=== PATIENT | female | born 1975 | race Caucasian/White ===

== ENCOUNTER → 2017-07-08 | Outpatient (CLI) | payer BC | LOC: FIMAGING 12:36 | PROVIDERS: ATTEND Physician Assistant | DX: Z12.31 Encounter for screening mammogram for malignant neoplasm of breast (principal); E04.2 Nontoxic multinodular goiter; R59.0 Localized enlarged lymph nodes | CPT/HCPCS: G0202 ==

== ENCOUNTER → 2017-07-12 | Outpatient (CLI) | payer BC ==
[~2017-07-12] MED LIST: LIDOCAINE 1% 300 MG/30 ML SDV ONE
== END ==
LOC: FIMAGING 12:31
PROVIDERS: ATTEND Physician Assistant
PROC: 0G9K3ZX Drainage of Thyroid Gland, Percutaneous Approach, Diagnostic (ICD-10-PCS; principal; 2017-07-12)
DX: C73 Malignant neoplasm of thyroid gland (principal)

== ENCOUNTER → 2017-07-20 | Outpatient (CLI) | payer BC | LOC: FIMAGING 14:12 | PROVIDERS: ATTEND Physician Assistant | DX: R92.8 Other abnormal and inconclusive findings on diagnostic imaging of breast (principal) ==

== ENCOUNTER 2017-09-08 06:35 | Observation (INO) | payer BC ==
[2017-09-08] MEDS ORDERED: LR 1,000 ML IV ONE (07:04)
[2017-09-08] MEDS ORDERED: MIDAZOLAM 2 MG/2 ML VIAL IVP ONE (07:41)
--- NOTE | 2017-09-08 07:41 | PDANEPAE ---
ANE History of Present Illness thyroidectomy, B neck dissection ANE Past Medical History - Cardiovascular History Hx Hypertension: No Hx Arrhythmias: No Hx Chest Pain: No Hx Coronary Artery / Peripheral Vascular Disease: No Hx CHF / Valvular Disease: No Hx Palpitations: No - Pulmonary History Hx COPD: No Hx Asthma/Reactive Airway Disease: Yes Hx Recent Upper Respiratory Infection: No Hx Oxygen in Use at Home: No Hx Sleep Apnea: No Sleep Apnea Screening Result - Last Documented: Negative Pulmonary History Comment: EXERCISE INDUCED ASTHMA. HAS INHALER USES APPROX TWICE A WEEK - Neurologic History Hx Cerebrovascular Accident: No Hx Seizures: No Hx Dementia: No - Endocrine History Hx Diabetes: No - Renal History Hx Renal Disorders: No - Liver History Hx Hepatic Disorders: No - Neurological & Psychiatric Hx Hx Neurological and Psychiatric Disorders: No - Cancer History Hx Cancer: Yes Cancer History Comment: NEW DX OF THYROID - Congenital Disorder History Hx Congenital Disorders: No - GI History Hx Gastrointestinal Disorders: No - Other Health History Other Health History: NEG - Chronic Pain History Chronic Pain: No - Surgical History Prior Surgeries: RT BREAST BX. RT SHLDR REPAIR ANE Review of Systems Review of systems is: negative Review of Systems: - Exercise capacity Exercise capacity: >=4 METS METS (RN): 6 METS ANE Patient History - Allergies Allergies/Adverse Reactions: No Known Allergies Allergy (Unverified 08/11/17 14:18) - Home Medications Home medications: home medication list seen and reviewed Home Medications: Albuterol [Proventil Inhaler HFA (*)] 1 - 2 puffs IH DAILY PRN 08/11/17 [Last Taken 09/08/17 06:00] Cholecalciferol Vit D3 [Vitamin D3 (*)] 1,000 units PO DAILY 08/11/17 [Last Taken 09/01/17] Herbals/Supplements -Info Only 1 ea PO DAILY 08/11/17 [Last Taken 09/01/17] Multivitamins [Multivitamin (*)] 1 each PO DAILY 08/11/17 [Last Taken 09/01/17] Holiday-3 Fatty Acids [Fish Oil 1000 mg (*)] 1,000 mg PO DAILY 08/11/17 [Last Taken 09/01/17] SUMAtriptan [Imitrex 50 MG (*)] 100 mg PO DAILY PRN 08/11/17 [Last Taken ] - NPO status NPO Since - Liquids (Date): 09/08/17 NPO Since - Liquids (Time): 06:00 NPO Since - Solids (Date): 09/07/17 NPO Since - Solids (Time): 21:00 - Anes Hx Anes Hx: post operative nausea - Smoking Hx Smoking Status: Never smoked - Family Anes Hx Family Anes Hx: none ANE Labs/Vital Signs - Vital Signs Blood Pressure: 158/108 Heart Rate: 81 Respiratory Rate: 16 O2 Sat (%): 99 Height: 157.48 cm Weight: 63.503 kg ANE Physical Exam - Airway Neck exam: FROM Mallampati Score: Class 1 Mouth exam: normal dental/mouth exam - Pulmonary Pulmonary: no respiratory distress - Cardiovascular Cardiovascular: regular rate and rhythym - ASA Status ASA Status: II ANE Anesthesia Plan Anesthesia Plan: general endotracheal anesthesia
[2017-09-08] MEDS ORDERED: DEXAMETHASONE 10 MG/ML VIAL IVP ONE ×2 (07:45→07:55)
[2017-09-08] MEDS ORDERED: ceFAZolin 2 GM/SWFI 2 GM/20 ML SYR IVP ONE (07:45)
[2017-09-08] MEDS ORDERED: LIDO/EPI 2%** Not for Epidural 20 ML MDV ONE (07:46)
--- NOTE | 2017-09-08 07:46 | PDHPUP ---
History & Physical Update H&P update statement: This history and physical update is based on an assessment of the patient which was completed after admission or registration (within 24 hours), but prior to the surgery/procedure.
[2017-09-08] MEDS ORDERED: BACITRACIN ZINC 14.2 GM OINTTUBE TP ONE (07:47)
[2017-09-08] MEDS ORDERED: LIDOCAINE 1% 300 MG/30 ML SDV ONE (07:47)
[2017-09-08] MEDS ORDERED: LIDOCAINE 2% 100 MG/5 ML SYR ONE (08:00)
[2017-09-08] MEDS ORDERED: ONDANSETRON 4 MG/2 ML VIAL ONE (08:00)
[2017-09-08] MEDS ORDERED: fentaNYL 250 MCG/5 ML INJ ONE (08:00)
[2017-09-08] MEDS ORDERED: DEXAMETHASONE 4 MG/ML VIAL ONE (08:00)
[2017-09-08] MEDS ORDERED: PROPOFOL 200 MG/20 ML VIAL ONE ×3 (08:00→09:41)
[2017-09-08] MEDS ORDERED: ROCURONIUM 50 MG/5 ML VIAL ONE (08:00)
[2017-09-08] MEDS ORDERED: HYDROCODONE/APAP 5/325 TAB PO PRN (09:25)
[2017-09-08] MEDS ORDERED: PROMETHAZINE HCL 25 MG/ML INJ IVP PRN (09:25)
[2017-09-08] MEDS ORDERED: MEPERIDINE 25 MG/ML SYR IVP PRN (09:25)
[2017-09-08] MEDS ORDERED: OXYCODONE/APAP 5/325 TAB PO PRN ×2 (09:25→13:31)
[2017-09-08] MEDS ORDERED: ACETAMINOPHEN 500 MG TAB PO PRN (09:25)
[2017-09-08] MEDS ORDERED: LABETALOL HCL 5 MG/ML 20 ML MDV IVP PRN (09:25)
[2017-09-08] MEDS ORDERED: HYDROmorphONE/DILAUDID 1 MG/ML INJ IVP PRN (09:25)
[2017-09-08] MEDS ORDERED: ONDANSETRON 4 MG/2 ML VIAL IVP PRN ×2 (09:25→13:31)
[2017-09-08] MEDS ORDERED: ALBUTEROL 3 ML DEYVIAL IH PRN (09:25)
[2017-09-08] MEDS ORDERED: DEXAMETHASONE 4 MG/ML VIAL IVP PRN (09:25)
[2017-09-08] MEDS ORDERED: fentaNYL 100 MCG/2 ML INJ IVP PRN (09:25)
[2017-09-08] MEDS ORDERED: NALOXONE HCL 0.4 MG/ML INJ IVP PRN (09:25)
--- NOTE | 2017-09-08 09:26 | POSTANESTH ---
Post Anesthetic Evaluation Cardiovascular Status: Normal, Stable, Similar to Pre-Op Cond Respiratory Status: Normal, Stable, Similar to Pre-op Cond. Level of Consciousness/Mental Status: Can Participate in Eval, Mildly Sleepy, Arousable Pain Control: Adequate, Prn Tx Ordered Nausea/Vomiting Control: Adequate, Prn Tx Ordered Complications Possibly Related to Anesthesia: None Noted
[2017-09-08] MEDS ORDERED: HYDROmorphONE/DILAUDID 2 MG/ML INJ ONE (10:37)
[2017-09-08] MEDS ORDERED: PROPOFOL/EMULSION 500 MG/50 ML BOTTLE IV ONE (10:55)
[2017-09-08] MEDS ORDERED: HYDROCOD/APAP 7.5/325 IN 15ML UDCUP PO PRN (13:31)
[2017-09-08] MEDS ORDERED: ALBUTEROL 60 PUFFS/8 GM MDI IH PRN (13:36)
[2017-09-08] MEDS ORDERED: SUMATRIPTAN 100 MG PO PRN (13:36)
[2017-09-08] MEDS ORDERED: SUMAtriptan 50 MG TAB PO PRN (14:05)
[2017-09-08] MEDS: D5W 1/2 NS W/ 20 KCl/L 1,000 ML IV SCH (14:46)
--- NOTE | 2017-09-08 18:30 | POSTOPPROG ---
Post Op Note Date of Operation: 09/08/17 Surgeon: Kevon Hart Telecommunicator Supervisor: Dipak Booth Anesthesiologist: Sandip Azar Anesthesia: GET(General Endotracheal) Pre-op Diagnosis: Papillary thyroid cancer Post-op Diagnosis: Papillary thyroid cancer Indication: Metastatic cancer Procedure: Total thyroidectomy, bilateral central neck dissection, bilat lateral ND Findings: firm thyoid mass centered in isthmus, mult grossly pos nodes Inf/Abcess present in the surg proc area at time of surgery?: No Depth: Organ Space EBL: 50-100 Complications: none Drains: Dakota Herrera (bilateral 10 FR drains)
[2017-09-08] MEDS ORDERED: KETOROLAC 15 MG/1 ML SDV IVP ONE (18:31)
--- NOTE | 2017-09-08 18:35 | SOAPPROG ---
SOAP Progress Note Assessment/Plan: Assessment: Pt doing well, not tolerating oral narcotics. Will try oral tylenol and a single dose of IV toradol. Plan: Pt doing well. Will obs overnight and see how she is doing in the morning. 09/08/17 18:32 Subjective: Hurts a bit to swallow, pain 4/10. Voice is "normal" No SOB. Objective: Vital Signs Temp Pulse Resp BP Pulse Ox 36.9 C 82 16 154/96 H 92 09/08/17 17:28 09/08/17 17:28 09/08/17 17:28 09/08/17 17:28 09/08/17 17:28 09/07/17 09/08/17 09/09/17 05:59 05:59 05:59 Intake Total 195 Output Total 430 Balance -235 Pt sitting up in bed. Neck is flat. ICD10 Worksheet Patient Problems: Problems Problem Status Onset Papillary thyroid carcinoma Acute - ICD10 Problem Qualifiers (1) Papillary thyroid carcinoma
[2017-09-09] MEDS: D5W 1/2 NS W/ 20 KCl/L 1,000 ML IV SCH (04:12)
[2017-09-09] MEDS: ACETAMINOPHEN 325 MG TAB PO PRN ×2 (04:12→10:24)
--- NOTE | 2017-09-09 05:12 | GOP ---
[f rep st] OPERATIVE REPORT DATE OF OPERATION: 09/08/2017 SURGEON: Kevon Hart MD PUMPER BREWERY: Jonas Booth ANESTHESIA: General. 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 PROCEDURE PERFORMED: 1. Total thyroidectomy. 2. Bilateral central compartment neck dissection. 3. Bilateral lateral neck dissections. FINDINGS: Both recurrent laryngeal nerves were identified and preserved. Both of the parathyroid glands in the left side of the neck were preserved. On the right side, I preserved the superior parathyroid gland. I did not see the inferior gland at the time of surgery. The patient had diffuse grossly positive lymph nodes at levels 3 and 4 and 6 bilaterally. There were 2 areas of metastatic spread embedded in the posterior aspect of the sternocleidomastoid muscle at its insertion into the clavicle on the right side. There was a large metastatic lesion in the left level 3, just inferior to the accessory nerve. The tumor of the thyroid gland itself was centered at the isthmus. It appeared to extend up along the pyramidal lobe. The dissection was carried all the way up to the hyoid bone. SPECIMENS: 1. Thyroid gland. 2. Right lateral neck dissection lymph nodes. 3. Right central compartment paratracheal nodes and anterior tracheal lymphatic tissue. 4. Left lateral neck lymph nodes. 1. Left paratracheal, central compartment lymph nodes. 5. ESTIMATED BLOOD LOSS: 100 mL. INDICATIONS: The patient is a 42-year-old woman with biopsy-proven papillary thyroid carcinoma. Preoperative imaging has shown evidence of spread to the lateral necks as well as central compartment. She presents for surgical intervention. DESCRIPTION OF PROCEDURE: The patient was taken to the OR and positively identified, placed on monitors, and general endotracheal anesthesia was induced. The incision was marked along the anterior neck and infiltrated with 4 cc of 1% lidocaine with 1:200,[address] Booth was present and actively involved in the entire sequence of procedures, his help was critical to the successful and safe completion of these operations. The patient was then prepped and draped in a normal sterile fashion, and the incision was made sharply. Dissection was then carried down to the platysma using Bovie electrocautery. Superior and inferior subplatysmal flaps were then raised and secured with 2-0 silk stitches. The tumor was palpable and grossly extended into the strap muscles at the midline. Therefore, a portion of the strap muscles was cut around this area of gross invasion and kept on the specimen. The strap muscles were then elevated off the thyroid gland bilaterally. Beginning on the right side, the dissection was carried along the thyroid capsule. The superior vascular pedicle was isolated, clamped, cut, and ligated with 2-0 silk suture. Dissection was then carried meticulously along the thyroid capsule, rotating medially. The superior parathyroid gland was identified and preserved. I did not identify the inferior parathyroid gland. The recurrent laryngeal nerve was then identified, and Joyner ligament divided. The thyroid gland was rotated medially. There was no gross invasion into the trachea. It was rotated off the trachea. I then dissected up the pyramidal lobe, which extended all the way up to the hyoid bone, where I then divided it. The isthmus containing the round massive tumor was then elevated off the trachea itself. Attention was now turned to the left side of the thyroid gland. The strap muscles were elevated off the superior vascular pedicle, which was clamped, cut , and ligated with 2-0 silk, as with the right side. It was then rotated medially. The recurrent laryngeal nerve and, in this case, both of the parathyroid glands were identified and preserved. Joyner ligament was divided and the thyroid gland was rotated medially. There were grossly positive lymph nodes attached to the inferior aspect of the left thyroid lobe. These were removed along with the thyroid gland itself. It was placed in formalin and sent for pathologic evaluation. Attention was now turned to the right lateral neck dissection. The fascia along the anterior border of the sternocleidomastoid muscle was divided. The SCM was then elevated. The underlying lymphatic tissue of levels 3 and 4 was then swept medially. Dissection was then carried down to the prevertebral fascia and the cervical rootlets, which were preserved. The lymphatic tissue was then rotated medially, dissecting it off the carotid artery and the internal jugular vein. Multiple grossly-positive lymph nodes were located within this tissue. Dissection was then carried down to the level of the clavicle. The lymphatic tissue was then removed. On palpation, I felt separate 2 small masses which were adherent to the undersurface of the sternocleidomastoid muscle, right at the point where the muscle attached to the medial aspect of the clavicle. The fascia was gently divided. These 2 grossly- positive nodes were then dissected away and added to the pathology specimen which contained the right lateral neck dissection tissue. Attention was turned to the right central compartment dissection. What I initially did was dissect down along the recurrent laryngeal nerve to decrease risk of injury. The surrounding paratracheal soft tissue was dissected inferiorly to the level of the transverse cervical vessels, and dissection was then carried along the midline toward the thymus, where there was a single grossly-positive lymph node about 1 cm in diameter sitting on the anterior aspect of the trachea, and this was removed. At this point, attention was turned to the left side of the neck. The lateral neck dissection was then performed on this side. Interestingly, there was a significant amount of inflammatory tissue and scarring around the metastatic mass, which was the largest that we located in the neck, involving levels 3 and 4. Its superior extent was up to the point that it was just inferior to the accessory nerve, where it entered the sternocleidomastoid muscle. Meticulous dissection was carried out. It took approximately 45 minutes to do this portion of the operation, using the [place] nerve stimulator to identify the accessory nerve and prevent inadvertent injury to it. The mass was dissected down inferiorly, elevating it off the internal jugular vein and carotid artery, and off the undersurface of the sternocleidomastoid muscle, and sweeping it from the neck and sending it along with its surrounding lymphatic tissue as the left lateral neck lymph nodes. Attention was now turned to the left central compartment dissection. I again identified the recurrent laryngeal nerve and dissected inferiorly along the nerve to keep it under direct visualization. Both the superior and inferior parathyroid glands were elevated laterally, preserving their vascular pedicle. At this point, the left paratracheal lymph nodes were dissected inferiorly down to the level of the transverse cervical vessels, although that dissection was not quite as aggressive on the left side due to the potential risk of a chyle leak. At this point, the inferior aspects of the lymph nodes were divided from the underlying tissue, with first using hemoclips and then sharply dividing above these. The tissue was sent separately for pathologic evaluation. At this point, the wound was irrigated with sterile saline solution. The neck was palpated bilaterally. I could not feel any further grossly-positive lymph nodes. Hemostasis was achieved slowly working our way around the neck, looking for oozing vessels, using bipolar cautery, hemoclips, or tying them off as needed. At this point, two 10-Palestinian drains were placed within the neck, 1 exiting out the side of the neck. They were secured with a drain stitch. The wound was then closed using 3-0 Vicryl to reapproximate the strap muscles, 4 -0 Monocryl for the platysma and subcutaneous tissues, and a 5-0 running Prolene through the skin, followed by bacitracin and Steri-Strips and a pressure dressing. The procedures took approximately 4 hours and were more complicated than the usual thyroid cancer operation. At this point, the patient was extubated and taken to the postop care unit in good condition, having tolerated the procedure well. COMPLICATIONS: None. DRAINS: Two 10-Palestinian drains were placed, a round drain more superficially, and a 10-Palestinian flat PAULINE drain deeper within the neck. /[id number]/MODL MTDD
[2017-09-09 07:19] VITALS: RESP 18; TEMP 99; O2SAT 95
[2017-09-09] MEDS ORDERED: CEPHALEXIN 500 MG CAP PO ONE (09:18)
--- NOTE | 2017-09-09 09:32 | PDDCSUM ---
Discharge Summary Discharge Summary: S: 42 year old female POD #1 s/p total thyroidectomy, bilateral central compartment neck dissection, bilateral neck dissection for papillary thyroid carcinoma with metastasis to bilateral cervical lymph nodes by Dr. Hart and Dr. Booth. She was admitted for observation 09/08/17. She is doing well. Using tylenol for pain. Eating and drinking well. Denies and SOB, changes in voice, difficulty swallowing. O: Larger PAULINE drain 150ml and smaller at 20 mL. Ionized calcium at 5:20AM at 1.14. Vital signs stable. Patient is in bed, alert and oriented. She is speaking well, breathing without issues. Incision clean, dry, intact. A/P: 42 year old female POD #1 s/p total thyroidectomy with neck dissection doing well post-operatively. Smaller PAULINE drain removed and dressing replaced. Patient is doing well and okay for discharge. She can resume regular diet. Reviewed case with Dr. Hart and david for discharge. Will remove larger drain tomorrow. Recommend kelfex 500 mg TID until larger drain removed. Tylenol for pain as she cannot tolerate narcotics. Post op visit scheduled for next week.
[2017-09-09 11:08] VITALS: BP 134/96; PULSE 77
--- NOTE | 2017-09-09 17:41 | ASDISCHSUM ---
Discharge Information Plan Status:Home with No Needs Medically Cleared to Leave: Discharge Date:09/09/2017 11:41 AM CM D/C Disposition:Home, Routine, Self-Care ADT D/C Disposition:Home, Routine, Self-Care Projected Discharge Date:09/09/2017 11:41 AM Transportation at D/C: Discharge Delay Reason: Follow-Up Date:09/09/2017 11:41 AM Discharge Slot: Final Diagnosis: Placement Information Patient Contact Information Contact Name:PRASHANTH Relationship:Mother Address: City: [facility] Phone: [facility] REO Code: Email: Financial Information Financial Class:HMO and PPO Plans Primary Plan Desc: OUT OF STATE PPO Primary Plan Number:[id number] Secondary Plan Desc: Secondary Plan Number: Assessment Information Intervention Information
== END 2017-09-09 11:41 | disposition home or self-care (01) ==
LOC: F3E 06:35
PROVIDERS: ADMIT Otolaryngology; ATTEND Otolaryngology
PROC: 0GTK0ZZ Resection of Thyroid Gland, Open Approach (ICD-10-PCS; principal; 2017-09-08 08:00)
PROC: 07T20ZZ Resection of Left Neck Lymphatic, Open Approach (ICD-10-PCS; principal; 2017-09-08 08:00)
PROC: 07T10ZZ Resection of Right Neck Lymphatic, Open Approach (ICD-10-PCS; principal; 2017-09-08 08:00)
DX: C73 Malignant neoplasm of thyroid gland (principal); C77.0 Secondary and unspecified malignant neoplasm of lymph nodes of head, face and neck
CPT/HCPCS: 60252; G0378; J0171; J0690; J1100; J1170; J1885; J2001; J2250; J2405; J2704; J3010

== ENCOUNTER → 2017-10-26 | Outpatient (CLI) | payer BC | LOC: FIMAGING 12:46 | PROVIDERS: ATTEND Internal Medicine Endocrinology, Diabetes & Metabolism | DX: C73 Malignant neoplasm of thyroid gland (principal) | CPT/HCPCS: 78018; 79005; A9517 ==

== ENCOUNTER → 2017-11-23 | Outpatient (CLI) | payer BC ==
[~2017-11-23] MED LIST changes: +IOPAMIDOL (ISOVUE-300) 100 ML BTL ONE; -LIDOCAINE 1% 300 MG/30 ML SDV ONE
== END ==
LOC: FIMAGING 08:55
PROVIDERS: ATTEND Internal Medicine Endocrinology, Diabetes & Metabolism
DX: E89.0 Postprocedural hypothyroidism (principal); Z85.850 Personal history of malignant neoplasm of thyroid
CPT/HCPCS: Q9967

== ENCOUNTER → 2018-06-29 | Outpatient (CLI) | payer BC | LOC: FIMAGING 16:10 | PROVIDERS: ATTEND Internal Medicine Endocrinology, Diabetes & Metabolism | DX: C73 Malignant neoplasm of thyroid gland (principal) | CPT/HCPCS: Q9967 ==

== ENCOUNTER → 2018-07-31 | Outpatient (CLI) | payer BC | LOC: FIMAGING 14:59 | PROVIDERS: ATTEND Physician Assistant | DX: Z12.31 Encounter for screening mammogram for malignant neoplasm of breast (principal) ==

== ENCOUNTER → 2018-12-13 | Outpatient (CLI) | payer BC | LOC: FIMAGING 07:08 | PROVIDERS: ATTEND Internal Medicine | DX: Z08 Encounter for follow-up examination after completed treatment for malignant neoplasm (principal); R91.1 Solitary pulmonary nodule | CPT/HCPCS: Q9967 ==